=== PATIENT | female | born 1950 | race Caucasian/White ===

== ENCOUNTER 2018-05-18 08:51 | Day surgery (SDC) | payer MEDICARE, BC ==
[~2018-05-18 08:51] MED LIST: Midazolam 1 MG/ML 2 ML SDV ONE; Propofol 200 MG/20 ML SDV ONE
--- NOTE | 2018-05-18 09:48 | PCM.PN ---
- General Info Date of Service: 05/18/18 - Review of Systems Systems Review Comment:: 67-year-old female referred for colonoscopy. She has had a recent change in her bowel pattern with some stool leakage. She also has a known history of colon polyps and had a recent fit test that was positive. She is medically stable to proceed today. Her recent history and physical is reviewed and no significant changes are noted. I discussed the proposed colonoscopy with the patient. She agrees to proceed accepting risks. - Patient Data Vitals - Most Recent: Last Vital Signs Temp 97.2 F 05/18/18 09:09 Pulse 67 05/18/18 09:09 Resp 18 05/18/18 09:09 BP 136/74 05/18/18 09:09 Pulse Ox 96 05/18/18 09:09 Weight - Most Recent: 240 kg Med Orders - Current: Current Medications Lactated Ringer's (Ringers, Lactated) 1,000 mls @ 125 mls/hr IV ASDIRECTED ELIZA Sodium Chloride (Saline Flush) 10 ml FLUSH ASDIRECTED PRN PRN Reason: Keep Vein Open Discontinued Medications Midazolam HCl (Versed 1 Mg/Ml) Confirm Administered Dose 2 mg .ROUTE .STK-MED ONE Stop: 05/18/18 08:10 Propofol (Diprivan 20 Ml) Confirm Administered Dose 200 mg .ROUTE .STK-MED ONE Stop: 05/18/18 08:10 - Problem List Review Problem List Initiated/Reviewed/Updated: Yes - My Orders Last 24 Hours: My Active Orders 05/18/18 11:45 Patient Status [ADT] Routine Peripheral IV Care [RC] . DIRECTED Verify Patient Consent Obtain [RC] ROUTINE Lactated Ringers [Ringers, Lactated] 1,000 ml IV ASDIRECTED Sodium Chloride 0.9% [Saline Flush] 10 ml FLUSH ASDIRECTED PRN Peripheral IV Insertion Adult [OM.PC] Routine - Assessment Assessment:: change in bowel habits - Plan Plan:: Colonoscopy
--- NOTE | 2018-05-18 10:22 | PCM.OPNOTE ---
- General Post-Op/Procedure Note Date of Surgery/Procedure: 05/18/18 Operative Procedure(s): Colonoscopy Findings: Moderate Sigmoid Diverticulosis Moderate sized lipoma in Descending colon Pre Op Diagnosis: Change in bowel habits Post-Op Diagnosis: Diverticulosis. Colon Lipoma Anesthesia Technique: MAC Primary Surgeon: John Blanco Pathology: none EBL in mLs: 0 Complications: None Condition: Good
[2018-05-18] MEDS ORDERED: Sodium Chloride 0.9% 10 ML Syringe FLUSH PRN (11:45)
[2018-05-18] MEDS ORDERED: Lactated Ringers 1,000 ML IV SCH (11:45)
[2018-05-18 13:21] VITALS: BP 123/73
--- NOTE | 2018-05-18 16:21 | OR ---
Date of Procedure: 05/18/2018 PREOPERATIVE DIAGNOSES: Change in bowel habits and positive FIT test. POSTOPERATIVE DIAGNOSES: Sigmoid diverticulosis and left colon lipoma. OPERATION PERFORMED: Colonoscopy. INDICATIONS FOR SURGERY: This 67-year-old female has noticed a change in her bowel pattern recently with some episodes of loose stools and even some leaking of the stool. She also was noted to have a recent positive FIT test. FINDINGS: The patient has a moderate degree of sigmoid diverticulosis. This does not appear to be acutely inflamed or otherwise complicated. No stenosis is noted in this area. She also has an approximately 3 cm lipoma, which is benign in appearance in the descending colon. This is not obstructing and not inflamed. The remainder of the colon appears normal. DESCRIPTION OF PROCEDURE: The patient was taken to the operating room. She was given intravenous sedation and with her in the left lateral decubitus position, digital rectal exam was performed. No rectal masses were noted. The Olympus colonoscope was inserted into the rectum. Retroflexed examination of the rectal canal was performed. The scope was then carefully advanced under direct visualization through the entire length of the colon until the cecum was reached. Cecal acquisition was confirmed by noting normal internal cecal anatomy including the appendiceal orifice and ileocecal valve. The ileocecal valve was cannulated and the terminal ileum also examined and appeared normal. The scope was then slowly withdrawn sequentially re-examining the colonic segments until the entire colon and rectum had been fully examined. The scope was removed and the patient was taken from the operating room in satisfactory condition. ESTIMATED BLOOD LOSS: Zero. COMPLICATIONS: None. PROGNOSIS: Good. NEDRA Blanco MD /[id number]
== END 2018-05-18 11:07 | disposition home or self-care (01) ==
LOC: LL.SDS 08:51
PROVIDERS: ATTEND Surgery
DX: R19.4 Change in bowel habit (principal); R19.5 Other fecal abnormalities; D17.5 Benign lipomatous neoplasm of intra-abdominal organs; K57.30 Diverticulosis of large intestine without perforation or abscess without bleeding; I10 Essential (primary) hypertension; N32.81 Overactive bladder; M19.90 Unspecified osteoarthritis, unspecified site; F32.9 Major depressive disorder, single episode, unspecified; Z86.010 Personal history of colon polyps; Z79.82 Long term (current) use of aspirin; Z79.899 Other long term (current) drug therapy
CPT/HCPCS: 00812; J2250; J2704; J7120